=== PATIENT | female | born 1985 | race Caucasian/White ===

== ENCOUNTER 2016-11-27 18:58 | Emergency (ER) | payer OTHER ==
[~2016-11-27] VITALS: Ht 162.6 cm; Wt 166.0 kg
[2016-11-27 19:08] VITALS: Ht 162.6 cm; Wt 166.0 kg
[2016-11-27] MEDS ORDERED: SOD CHLORIDE 0.9% 1,000 ML IV STA (21:39)
[2016-11-27] MEDS ORDERED: METOCLOPRAMIDE 10 MG INJ IV ONE (22:00)
[2016-11-27 22:33] LABS: ADD UMIC YES; URINE BILIRUBIN (Dip) NEGATIVE (NEGATIVE); URINE BLOOD (Dip) NEGATIVE (NEGATIVE); URINE GLUCOSE (Dip) NEGATIVE (NEGATIVE); URINE KETONES (Dip) NEGATIVE (NEGATIVE); URINE LEUKOCYTE ESTERASE (Dip) 1+ (NEGATIVE); URINE NITRITE (Dip) NEGATIVE (NEGATIVE); URINE TOTAL PROTEIN (Dip) NEGATIVE (NEGATIVE); URINE UROBILINOGEN (Dip) 0.2 E.U./dL (0.1-1.0)
[2016-11-27] MEDS ORDERED: HYDROmorphONE 1 MG/ML SYG IV STA (22:42)
[2016-11-27 22:43] LABS: BACTERIA,URINE MODERATE; SQUAMOUS EPITHELIAL CELL,UR MANY; URINE COLOR YELLOW (YELLOW); URINE RBCS NONE SEEN /HPF (0)
[2016-11-27 22:55] LABS: ALBUMIN 4.1 g/dl (3.3-4.9)
[2016-11-27 22:56] LABS: POTASSIUM 4.2 mmol/L (3.5-5.1)
[2016-11-27 22:57] LABS: BASOPHILS % 0.3 % (0.0-2.0); EOSINOPHILS # 0.2 10^3/ul (0.0-0.5); EOSINOPHILS % 1.8 % (0.0-7.0); HEMATOCRIT 35.6 % (37.0-47.0); LYMPHOCYTES # 2.8 10^3/ul (0.8-2.9); LYMPHOCYTES % 29.4 % (15.0-51.0); MEAN CORPUSCULAR HEMOGLOBIN 31.3 pg (29.0-33.0); MEAN CORPUSCULAR HGB CONC 33.8 g/dl (32.0-37.0); MEAN CORPUSCULAR VOLUME 92.5 fl (82.0-101.0); MEAN PLATELET VOLUME 8.1 fl (7.4-10.4); MONOCYTE # 0.9 10^3/ul (0.3-0.9); MONOCYTES % 9.3 % (0.0-11.0); NEUTROPHIL # 5.7 10^3/ul (1.6-7.5); NEUTROPHILS % 59.2 % (39.0-77.0); PLATELET COUNT 287 10^3/UL (140-440); RED BLOOD COUNT 3.84 10^6/ul (4.20-5.40); RED CELL DISTRIBUTION WIDTH 14.8 % (11.5-14.5); UNCORRECTED WBC 9.6 10^3/ul (4.8-10.8); WHITE BLOOD COUNT 9.6 10^3/ul (4.8-10.8)
[2016-11-27 22:58] LABS: ALBUMIN/GLOBULIN RATIO 1.05; BILIRUBIN,INDIRECT 0.3 mg/dl (0-1.1); BILIRUBIN,TOTAL 0.3 mg/dl (0.2-1.3); CREATININE 0.63 mg/dl (0.44-1.00)
[2016-11-27 23:01] LABS: CONDITION 1; LH ANALYZER COMMENTS 1
--- NOTE | 2016-11-28 00:01 | RADRPT ---
PROCEDURE: CT Brain without contrast. CLINICAL INDICATION: headache, dizziness TECHNIQUE: A multiplanar CT of the brain was performed on a CT scanner utilizing axial imaging fro m the skull base through the vertex without IV contrast. The CTDIvol is 44.8 mGy and the DLP is 720 .23 mGycm. One or more of the following dose reduction techniques were utilized: Automated exposur e control, adjustment of the mA and/or kV according to patient size, use of iterative reconstruction technique. COMPARISON: None. FINDINGS: No evidence of intracranial hemorrhage or abnormal extra-axial fluid collection. The brain parenchyma is normal attenuation morphology with preservation of jimenez white differentiatio n and age appropriate size of the ventricles and subarachnoid spaces. The posterior fossa contents, brainstem, craniocervical junction, orbits, pituitary axis, paranasal sinuses, mastoid air cells, and calvarium are unremarkable. IMPRESSION: 1. No intracranial hemorrhage or acute intracranial. RPTAT:AAJJ Physician Merle Date Time Electronically viewed and signed by Physician Merle on 11/28/2016 00:01 WINIFRED/
[2016-11-28] MEDS ORDERED: HYDROmorphONE 1 MG/ML SYG IV STA (00:32)
[2016-11-28] MEDS ORDERED: FIORICET PO (00:43)
--- NOTE | 2016-11-28 00:49 | ERD ---
ER Documentation Chief Complaint Date/Time DATE: 11/28/16 TIME: 00:46 Chief Complaint Headache, dizziness HPI 31-year-old female with a past medical history of status post gastric sleeve surgery presents to the ED complaining of headache that started earlier today. Reports that she has a past medical history of migraines however this headache feels different. Reports that she started to feel nauseous, lightheaded a couple of days ago. States that she felt like she wanted to faint earlier today. Describes the pain as a nail drilling into her skull. Reports that the pain is constant and rates it a 10 out of 10. States that she is nauseous but denies any vomiting. Denies any abdominal pain, chest pain, shortness of breath , weakness, numbness or tingling. ROS All systems reviewed and are negative except as per history of present illness. Medications Home Meds Active Scripts Acetamin/Butalbital/Caffeine* (Fioricet*) [id number] Tab, 1 TAB PO Q6H Y for PAIN, #30 TAB Prov:HECTOR RUSSO PA-C 11/28/16 Allergies Allergies: Coded Allergies: cefazolin (Verified Allergy, Unknown, 11/27/16) erythromycin base (Verified Allergy, Unknown, 11/27/16) PMhx/Soc History of Surgery: Yes (gastric sleeve, gall bladder, ) Anesthesia Reaction: No Hx Neurological Disorder: No Hx Respiratory Disorders: No Hx Cardiac Disorders: No Hx Psychiatric Problems: No Hx Miscellaneous Medical Probl: Yes (migraines) Hx Alcohol Use: No Hx Substance Use: No Hx Tobacco Use: No Smoking Status: Never smoker Physical Exam Vitals Vital Signs Date Time Temp Pulse Resp B/P Pulse Ox O2 Delivery O2 Flow Rate FiO2 11/27/16 19:08 97.1 115 20 137/88 99 Physical Exam Const: Ufz-dlj-ithyparne, well-nourished. In no acute distress. Head: Atraumatic, normocephalic Eyes: Normal Conjunctiva without injection. No purulent discharge. PERRLA. EOMI ENT: Normal external ear. Ear canal without erythema. Tympanic membrane pearly jimenez without effusion or bulging. Nasal canal clear with normal turbinates. Moist oropharynx without tonsillar exudates. Non-erythematous pharynx. Uvula midline. No drooling. No trismus. Neck: No cervical midline tenderness. Full range of motion. No meningismus. No cervical lymphadenopathy. No JVD. Resp: Clear to auscultation bilaterally. No wheezing, rhonchi, rales, or crackles. No accessory muscle use. No retractions. Cardio: Regular rate and rhythm. No murmurs, rubs or gallops. Abd: Soft, non tender, non distended. Normal bowel sounds. No palpable masses. No rebound tenderness. No guarding. Negative McBurney's Point. Negative Albert's Sign. Skin: Normal skin turgor. No petechiae or rashes Back: No midline tenderness. No CVA tenderness. Ext: No cyanosis, or edema. Distal pulses intact bilaterally. Neur: Awake and alert. Normal gait. Normal coordination. Cranial Nerves II- VII intact. Normal finger to nose. Muscle strength 5/5. Sensation intact. Psych: Normal Mood and Affect Result Diagram: 11/27/16221411/27/162214 Results 24 hrs Laboratory Tests Test 11/27/16 22:10 11/27/16 22:15 Urine Bacteria MODERATE Urine Bilirubin NEGATIVE Urine Clarity CLOUDY Urine Color YELLOW Urine Glucose NEGATIVE% Urine Hemoglobin NEGATIVE Urine Ketones NEGATIVE Urine Leukocyte Esterase 1+ Urine Microscopic RBC NONE SEEN/HPF Urine Microscopic WBC 5-10/HPF Urine Nitrite NEGATIVE Urine Specific [place] >=1.030 Urine Squamous Epithelial Cells MANY Urine Total Protein NEGATIVE Urine Urobilinogen 0.2 E.U./dL Urine pH 5.5 Alanine Aminotransferase (ALT/SGPT) 18IU/L Albumin 4.1g/dl Albumin/Globulin Ratio 1.05 Alkaline Phosphatase 72IU/L Anion Gap 19 Aspartate Amino Transf (AST/SGOT) 23IU/L Basophils # 0.010^3/ul Basophils % 0.3% Blood Morphology Comment Blood Urea Nitrogen 12mg/dl Calcium Level 9.0mg/dl Carbon Dioxide Level 24mmol/L Chloride Level 105mmol/L Creatinine 0.63mg/dl Direct Bilirubin 0.00mg/dl Eosinophils # 0.210^3/ul Eosinophils % 1.8% Globulin 3.90g/dl Glucose Level 82mg/dl Hematocrit 35.6% Hemoglobin 12.0g/dl Indirect Bilirubin 0.3mg/dl Lipase 55U/L Lymphocytes # 2.810^3/ul Lymphocytes % 29.4% Mean Corpuscular Hemoglobin 31.3pg Mean Corpuscular Hemoglobin Concent 33.8g/dl Mean Corpuscular Volume 92.5fl Mean Platelet Volume 8.1fl Monocytes # 0.910^3/ul Monocytes % 9.3% Neutrophils # 5.710^3/ul Neutrophils % 59.2% Nucleated Red Blood Cells # 0.010^3/ul Nucleated Red Blood Cells % 0.0/100WBC Platelet Count 77796^3/UL Potassium Level 4.2mmol/L Red Blood Count 3.8410^6/ul Red Cell Distribution Width 14.8% Serum HCG, Qualitative NEGATIVE Sodium Level 144mmol/L Total Bilirubin 0.3mg/dl Total Protein 8.0g/dl White Blood Count 9.610^3/ul Current Medications Medications (Trade) Dose Ordered Sig/Lesley Route PRN Reason Start Time Stop Time Status Last Admin Dose Admin Sodium Chloride (NS) 1,000 ml @ 1,000 mls/hr Q1H STAT IV 11/27/16 21:39 11/27/16 22:38 DC 11/27/16 22:16 Metoclopramide HCl (Reglan) 10 mg ONCE ONCE IV 11/27/16 22:00 11/27/16 22:01 DC 11/27/16 22:16 Hydromorphone HCl (Dilaudid) 1 mg ONCE STAT IV 11/27/16 22:42 11/27/16 22:45 DC 11/27/16 22:53 Hydromorphone HCl (Dilaudid) 1 mg ONCE STAT IV 11/28/16 00:32 11/28/16 00:34 DC 11/28/16 00:48 Procedures/MDM This is a 31-year-old female with no significant past medical history presents the ED complaining of dizziness, lightheadedness and headache. Patient is afebrile and nontoxic-appearing. A CT of the brain without contrast was discussed with patient at this time. Patient stated that she would like to obtain a CT without contrast because this headache is very severe and is different from her previous migraines. A CBC, CMP, lipase, UA, urine , serum hCG was ordered to further evaluate patient. Patient was treated with 1 L of normal saline, Reglan, Dilaudid with improvement of her pain. EKG reviewed and interpreted by Dr. Gomez Rate/Rhythm: [89 bpm, Normal Sinus Rhythm] No ectopy, no ST elevations, normal axis. QRS, ST, T-waves: [No changes consistent w/ acute ischemia] Impression: [No evidence of ischemia or arrhythmia] Low suspicion for acute myocardial infarction, pneumothorax, pneumonia, cardiac tamponade, pulmonary embolism, AAA, aortic dissection, Boerhaave's syndrome, cardiac dysrhythmias,meningitis, intracranial bleed, seizure, stroke, TIA or other emergent conditions. PROCEDURE: CT Brain without contrast. CLINICAL INDICATION: headache, dizziness TECHNIQUE: A multiplanar CT of the brain was performed on a CT scanner utilizing axial imaging from the skull base through the vertex without IV contrast. The CTDIvol is 44.8 mGy and the DLP is 720.23 mGycm. One or more of the following dose reduction techniques were utilized: Automated exposure control, adjustment of the mA and/or kV according to patient size, use of iterative reconstruction technique. COMPARISON: None. FINDINGS: No evidence of intracranial hemorrhage or abnormal extra-axial fluid collection. The brain parenchyma is normal attenuation morphology with preservation of jimenez white differentiation and age appropriate size of the ventricles and subarachnoid spaces. The posterior fossa contents, brainstem, craniocervical junction, orbits, pituitary axis, paranasal sinuses, mastoid air cells, and calvarium are unremarkable. IMPRESSION: 1. No intracranial hemorrhage or acute intracranial. There is low suspicion for intracranial bleed, subarachnoid hemorrhage, epidural hematoma, subdural hematoma, meningitis, TIA, stroke, ectopic , hypoglycemia, or other emergent conditions. Discharge medications: Fioricet Follow up with primary care physician in 1-2 days. Instructed patient to return to the ED sooner for any worsening symptoms. Patient's questions were answered. Patient understood and agreed with discharge plan. Patient discharged stable. Departure Diagnosis: Primary Impression: Headache Headache type: unspecified Headache chronicity pattern: unspecified pattern Intractability: not intractable Qualified Code: R51 - Nonintractable headache, unspecified chronicity pattern, unspecified headache type Additional Impression: Dizziness Condition: Stable Patient Instructions: Possible Causes of Dizziness or Fainting, Headache, Unspecified Referrals: COMM[facility] YOU HAVE RECEIVED A MEDICAL SCREENING EXAM AND THE RESULTS INDICATE THAT YOU DO NOT HAVE A CONDITION THAT REQUIRES URGENT TREATMENT IN THE EMERGENCY DEPARTMENT. FURTHER EVALUATION AND TREATMENT OF YOUR CONDITION CAN WAIT UNTIL YOU ARE SEEN IN YOUR DOCTORS OFFICE WITHIN THE NEXT 1-2 DAYS. IT IS YOUR RESPONSIBILITY TO MAKE AN APPOINTMENT FOR FOLOW-UP CARE. IF YOU HAVE A PRIMARY DOCTOR --you should call your primary doctor and schedule an appointment IF YOU DO NOT HAVE A PRIMARY DOCTOR YOU CAN CALL OUR PHYSICIAN REFERRAL HOTLINE AT IF YOU CAN NOT AFFORD TO SEE A PHYSICIAN YOU CAN CHOSE FROM THE FOLLOWING [facility] [address] [facility] [address] [facility] [address] [facility] [address] [facility] [address] [facility]. [facility] [address] [facility]. [facility] YOU HAVE RECEIVED A MEDICAL SCREENING EXAM AND THE RESULTS INDICATE THAT YOU DO NOT HAVE A CONDITION THAT REQUIRES URGENT TREATMENT IN THE EMERGENCY DEPARTMENT. FURTHER EVALUATION AND TREATMENT OF YOUR CONDITION CAN WAIT UNTIL YOU ARE SEEN IN YOUR DOCTORS OFFICE WITHIN THE NEXT 1-2 DAYS. IT IS YOUR RESPONSIBILITY TO MAKE AN APPOINTMENT FOR FOLOW-UP CARE. IF YOU HAVE A PRIMARY DOCTOR --you should call your primary doctor and schedule and appointment IF YOU DO NOT HAVE A PRIMARY DOCTOR YOU CAN CALL OUR PHYSICIAN REFERRAL HOTLINE AT . IF YOU CAN NOT AFFORD TO SEE A PHYSICIAN YOU CAN CHOSE FROM THE FOLLOWING [facility] INSTITUTIONS: [facility] [address] [place] [address] [facility] [address] [place] [address] [facility] [address] [place] [address] [facility] URGENT [facility]/SPECIALTIES Additional Instructions: FOLLOW UP WITH YOUR PRIMARY CARE PHYSICIAN TOMORROW.Return to this facility if you are not improving as expected. HECTOR RUSSO PA-C Nov 28, 2016 00:49
== END 2016-11-28 01:08 | disposition home or self-care (01) ==
LOC: FTE 18:58
DX: R51 Headache (principal); R42 Dizziness and giddiness
CPT/HCPCS: 36415; 70450; 80053; 81001; 83690; 84703; 85025; 93005; 96374; 96375; 96376; 99285; J1170; J2765; J7030; 81003

== ENCOUNTER 2017-02-17 18:09 | Emergency (ER) | payer OTHER ==
[~2017-02-17] VITALS: Ht 165.1 cm; Wt 110.0 kg
[~2017-02-17 18:09] MED LIST: FIORICET PO
[2017-02-17 18:11] VITALS: Ht 165.1 cm; Wt 110.0 kg
[2017-02-17] MEDS ORDERED: HYDROmorphONE 1 MG/ML SYG IV STA ×3 (18:39→22:38)
[2017-02-17] MEDS ORDERED: SOD CHLORIDE 0.9% 500 ML IV STA (18:39)
[2017-02-17] MEDS ORDERED: ONDANSETRON 4 MG INJ IV STA (18:39)
--- NOTE | 2017-02-17 18:44 | ERD ---
ER Documentation Chief Complaint Date/Time DATE: 02/17/17 TIME: 18:40 Chief Complaint LEFT SIDED AP HPI 31-year-old female history of morbid obesity, status post gastric sleeve 4 years ago who presents with left-sided abdominal pain and back pain. She describes sudden onset of pain that is moderate to severe that occurred approximately 1-2 hours prior to arrival. She describes constant pain, no colicky pain. No nausea or vomiting no chest pain or shortness of breath, no pleuritic pain. She denies any reproducible symptoms. No dysuria urgency or frequency. ROS All systems reviewed and are negative except as per history of present illness. Medications Home Meds Active Scripts Ondansetron (Ondansetron Odt) 4 Mg Tab.rapdis, 4 MG PO Q6H Y for NAUSEA AND/OR VOMITING, #10 TAB Prov:DM CAIN MD 02/17/17 Ibuprofen* (Motrin*) 800 Mg Tab, 800 MG PO Q6H Y for PAIN AND OR ELEVATED TEMP, #30 TAB Prov:DM CAIN MD 02/17/17 Hydrocodone/Acetaminophen (Faywood 10-325 Tablet) 1 Each Tablet, 1 TAB PO Q6H Y for PAIN, #12 TAB Prov:DM CAIN MD 02/17/17 Tamsulosin Hcl* (Flomax*) 0.4 Mg Cap.er.24h, 0.4 MG PO QPM, #5 CAP Prov:DM CAIN MD 02/17/17 Discontinued Scripts Acetamin/Butalbital/Caffeine* (Fioricet*) [id number] Tab, 1 TAB PO Q6H Y for PAIN, #30 TAB Prov:HECTOR RUSSO PA-C 11/28/16 Allergies Allergies: Coded Allergies: cefazolin (Verified Allergy, Unknown, 02/17/17) erythromycin base (Verified Allergy, Unknown, 02/17/17) PMhx/Soc History of Surgery: Yes (gastric sleeve, gall bladder, ) Anesthesia Reaction: No Hx Neurological Disorder: No Hx Respiratory Disorders: No Hx Cardiac Disorders: No Hx Psychiatric Problems: No Hx Miscellaneous Medical Probl: Yes (migraines) Hx Alcohol Use: No Hx Substance Use: No Hx Tobacco Use: No Smoking Status: Never smoker FmHx Family History: No diabetes Physical Exam Vitals Vital Signs Date Time Temp Pulse Resp B/P Pulse Ox O2 Delivery O2 Flow Rate FiO2 02/17/17 18:34 81 17 148/82 100 Room Air 02/17/17 18:11 98.2 75 18 120/75 99 Physical Exam General: Well developed, well nourished, no acute distress Head: Normocephalic, atraumatic. Eyes: Pupils equally reactive, EOM intact ENT: Moist mucous membranes Neck: Supple, no lymphadenopathy Respiratory: Lungs clear bilaterally, no distress Cardiovascular: RRR, no murmurs, rubs, or gallops Abdominal: Soft, inconsistent tenderness to left side of the abdomen both upper and lower quadrants without rebound or guarding : Deferred MSK: No edema, no unilateral swelling, 5/5 strength Neurologic: Alert and oriented, moving all extremities, normal speech, no focal weakness, no cerebellar signs Skin: No rash Psych: Normal mood Result Diagram: 02/17/17 1830 02/17/17 1830 Results 24 hrs Laboratory Tests Test 02/17/17 18:30 02/17/17 19:40 White Blood Count 9.010^3/ul Red Blood Count 3.7310^6/ul Hemoglobin 12.2g/dl Hematocrit 36.8% Mean Corpuscular Volume 98.7fl Mean Corpuscular Hemoglobin 32.7pg Mean Corpuscular Hemoglobin Concent 33.2g/dl Red Cell Distribution Width 11.6% Platelet Count 69262^3/UL Mean Platelet Volume 10.4fl Neutrophils % 55.6% Lymphocytes % 34.0% Monocytes % 8.6% Eosinophils % 1.3% Basophils % 0.2% Nucleated Red Blood Cells % 0.0/100WBC Neutrophils # 5.010^3/ul Lymphocytes # 3.110^3/ul Monocytes # 0.810^3/ul Eosinophils # 0.110^3/ul Basophils # 0.010^3/ul Nucleated Red Blood Cells # 0.010^3/ul Sodium Level 140mmol/L Potassium Level 4.5mmol/L Chloride Level 106mmol/L Carbon Dioxide Level 22mmol/L Anion Gap 17 Blood Urea Nitrogen 13mg/dl Creatinine 0.65mg/dl Glucose Level 85mg/dl Calcium Level 9.3mg/dl Total Bilirubin 0.5mg/dl Direct Bilirubin 0.00mg/dl Indirect Bilirubin 0.5mg/dl Aspartate Amino Transf (AST/SGOT) 32IU/L Alanine Aminotransferase (ALT/SGPT) 17IU/L Alkaline Phosphatase 80IU/L Total Protein 8.3g/dl Albumin 4.2g/dl Globulin 4.10g/dl Albumin/Globulin Ratio 1.02 Lipase 51U/L Serum HCG, Qualitative NEGATIVE Urine Color YELLOW Urine Clarity SLIGHTLY CLOUDY Urine pH 5.5 Urine Specific [place] 1.025 Urine Ketones NEGATIVE Urine Nitrite NEGATIVE Urine Bilirubin NEGATIVE Urine Urobilinogen 1.0 E.U./dL Urine Leukocyte Esterase 2+ Urine Microscopic RBC >50/HPF Urine Microscopic WBC 2-5/HPF Urine Squamous Epithelial Cells FEW Urine Hemoglobin 3+ Urine Glucose NEGATIVE% Urine Total Protein TRACE Current Medications Medications (Trade) Dose Ordered Sig/Lesley Route PRN Reason Start Time Stop Time Status Last Admin Dose Admin Sodium Chloride (NS) 500 ml @ 500 mls/hr Q1H STAT IV 02/17/17 18:39 02/17/17 19:38 DC 02/17/17 18:57 Hydromorphone HCl (Dilaudid) 1 mg ONCE STAT IV 02/17/17 18:39 02/17/17 18:40 DC 02/17/17 18:56 Ondansetron HCl (Zofran Inj) 4 mg ONCE STAT IV 02/17/17 18:39 02/17/17 18:40 DC 02/17/17 18:56 Hydromorphone HCl (Dilaudid) 1 mg ONCE STAT IV 02/17/17 20:23 02/17/17 20:24 DC 02/17/17 20:28 Ketorolac Tromethamine (Toradol) 15 mg ONCE STAT IV 02/17/17 20:27 02/17/17 20:30 DC Procedures/MDM EKG, MONITORS, & DIAGNOSTIC IMAGING: CT abdomen and pelvis: Pending LAB INTERPRETATION: Microscopic hematuria, no evidence of renal insufficiency MEDICAL DECISION MAKING: The patient presents the emergency room with sudden onset left flank pain. Broad differential but this is most consistent with possible renal colic. Consider possible musculoskeletal etiology. No evidence of rash to suggest shingles. The patient has a difficult exam given her body habitus. This is prompting CT imaging of the abdomen and pelvis. No evidence of perforation or cardiopulmonary process. ER COURSE: The patient's laboratory testing are likely consistent with renal colic. CT imaging is pending. Patient has been given 2 rounds of Dilaudid and Toradol with improved symptomatology. The patient CT imaging is pending at the time of signout. Patient endorsed oncoming provider. If negative the patient can be safely discharged with close urology follow-up. No indication for antibiotics currently. I kept the patient and/or family informed of laboratory and diagnostic imaging results throughout the emergency room course. DISPOSITION PLAN: Pending CT imaging but anticipate discharge home We discussed follow up with the patient's primary care doctor within 24 to 48 hours as needed. We also discussed return to the emergency room for worsening symptoms or worsening condition. Outpatient referral: Urology Discharge Medications: Motrin, Faywood, Zofran, Flomax We discussed the use of narcotics including avoidance of operating heavy machinery and driving as well as its addictive properties. Departure Diagnosis: Primary Impression: Left flank pain Additional Impressions: Microscopic hematuria Renal colic on left side Condition: Stable DM CAIN MD Feb 17, 2017 18:44
[2017-02-17 19:03] LABS: ADD SCAN DIFF NO
[2017-02-17 19:05] LABS: BASOPHILS % 0.2 % (0.0-2.0); EOSINOPHILS # 0.1 10^3/ul (0.0-0.5); EOSINOPHILS % 1.3 % (0.0-7.0); HEMATOCRIT 36.8 % (37.0-47.0); HEMOGLOBIN 12.2 g/dl (12.0-16.0); LYMPHOCYTES # 3.1 10^3/ul (0.8-2.9); MEAN CORPUSCULAR HEMOGLOBIN 32.7 pg (29.0-33.0); MEAN CORPUSCULAR HGB CONC 33.2 g/dl (32.0-37.0); MEAN CORPUSCULAR VOLUME 98.7 fl (82.0-101.0); MEAN PLATELET VOLUME 10.4 fl (7.4-10.4); MONOCYTE # 0.8 10^3/ul (0.3-0.9); MONOCYTES % 8.6 % (0.0-11.0); NEUTROPHILS % 55.6 % (39.0-77.0); PLATELET COUNT 307 10^3/UL (140-415); RED BLOOD COUNT 3.73 10^6/ul (4.20-5.40); RED CELL DISTRIBUTION WIDTH 11.6 % (11.5-14.5)
[2017-02-17 19:19] LABS: ALBUMIN 4.2 g/dl (3.3-4.9)
[2017-02-17 19:20] LABS: POTASSIUM 4.5 mmol/L (3.5-5.1)
[2017-02-17 19:22] LABS: ALBUMIN/GLOBULIN RATIO 1.02; BILIRUBIN,INDIRECT 0.5 mg/dl (0-1.1); BILIRUBIN,TOTAL 0.5 mg/dl (0.2-1.3); CREATININE 0.65 mg/dl (0.44-1.00); TOTAL PROTEIN 8.3 g/dl (6.1-8.1)
[2017-02-17 19:23] LABS: CALCIUM 9.3 mg/dl (8.4-10.2)
[2017-02-17 20:09] LABS: ADD UMIC YES; URINE COLOR YELLOW (YELLOW)
[2017-02-17 20:11] LABS: URINE BILIRUBIN (Dip) NEGATIVE (NEGATIVE); URINE BLOOD (Dip) 3+ (NEGATIVE); URINE GLUCOSE (Dip) NEGATIVE (NEGATIVE); URINE KETONES (Dip) NEGATIVE (NEGATIVE); URINE NITRITE (Dip) NEGATIVE (NEGATIVE); URINE TOTAL PROTEIN (Dip) TRACE (NEGATIVE); URINE UROBILINOGEN (Dip) 1.0 E.U./dL (0.1-1.0)
[2017-02-17 20:12] LABS: URINE LEUKOCYTE ESTERASE (Dip) 2+ (NEGATIVE)
[2017-02-17 20:20] LABS: SQUAMOUS EPITHELIAL CELL,UR FEW; URINE RBCS >50 /HPF (0)
[2017-02-17] MEDS ORDERED: HYDR-902 PO (20:24)
[2017-02-17] MEDS ORDERED: TAMS-14 PO (20:24)
[2017-02-17] MEDS ORDERED: IBUP800T25 PO (20:24)
[2017-02-17] MEDS ORDERED: ONDA4TAB14 PO (20:24)
[2017-02-17] MEDS ORDERED: KETOROLAC 15 MG INJ IV STA (20:27)
--- NOTE | 2017-02-17 22:06 | RADRPT ---
PROCEDURE: CT Abdomen and pelvis without contrast. CLINICAL INDICATION: Abdominal pain. TECHNIQUE: CT scan of the abdomen without contrast was performed on a multi-slice CT scanner. Cor onal and sagittal reformatted images were obtained from the axial source images. 1 or more of the f ollowing dose reduction techniques were utilized: Automated exposure control, adjustment of the mA and/or kV according to patient's size, iterative reconstruction technique. The images were reviewed on a high-resolution PACS workstation. RADIATION DOSE: CTDIvol: 44.8 mGyDLP: 720.2 mGy-cm COMPARISON: None. FINDINGS: The images slightly limited due to attenuation of the vein from soft tissue. Limited visualization of the inferior thorax is unremarkable. The liver is normal in size and density without focal mass or intrahepatic biliary dilatation. There are postoperative change from prior cholecystectomy. The extrahepatic common bile duct is within normal limits. There are postoperative changes from prior g astric surgery. The spleen, adrenal glands and pancreas are normal in appearance. The kidneys are normal in appearance. There is no evidence of nephrolithiasis or hydronephrosis. There is no periao rtic, iliac or inguinal lymphadenopathy. The aorta is normal in appearance. The colon is normal in appearance without evidence of asymmetric wall thickening, mass or dilatation . The small bowel is unremarkable. There is no mesenteric lymphadenopathy. The appendix is not de finitely visualized. No enlarged, inflamed loops of small bowel are seen in the right lower quadran t.. The uterus and adnexal structures are unremarkable. The bladder is normal in appearance. The lower thoracic and lumbar spines are unremarkable. No osteolytic or osteoblastic lesion is detected . The soft tissues are normal in appearance. IMPRESSION: 1. No acute intra-abdominal abnormality. 2. No mass, lymphadenopathy, or focal acute inflammatory process is identified. 3. Postoperative changes from prior gastric surgery and cholecystectomy. RPTAT: HGAS .Lonnie Cortes MD, MD Date Time Electronically viewed and signed by .Lonnie Cortes MD, MD on 02/17/2017 22:06 .S/
[2017-02-17 23:00] VITALS: BP 104/60; PULSE 75; RESP 21
== END 2017-02-18 00:21 | disposition home or self-care (01) ==
LOC: E/R 18:09
DX: R10.12 Left upper quadrant pain (principal); R10.32 Left lower quadrant pain; R31.21 Asymptomatic microscopic hematuria; R10.2 Pelvic and perineal pain
CPT/HCPCS: 74176; 80053; 81001; 83690; 84703; 85025; J1170; J1885; J2405; J7040; 36415; 81003; 96374; 96375; 96376

== ENCOUNTER 2017-05-04 17:14 | Emergency (ER) | payer OTHER ==
[~2017-05-04] VITALS: Wt 158.2 kg
[~2017-05-04 17:14] MED LIST changes: -FIORICET PO; +HYDR-902 PO; +IBUP800T25 PO; +ONDA4TAB14 PO; +TAMS-14 PO
[2017-05-04] MEDS ORDERED: SOD CHLORIDE 0.9% 1,000 ML IV ONE ×2 (18:00→21:30)
[2017-05-04 18:04] LABS: ADD SCAN DIFF NO
[2017-05-04 18:30] LABS: ACETAMINOPHEN < 10.0 ug/ml (10.0-30.0); ALANINE AMINOTRANSFERASE 27 IU/L (13-69); ALBUMIN 4.6 g/dl (3.3-4.9); ALBUMIN/GLOBULIN RATIO 1.43; ALKALINE PHOSPHATASE 65 IU/L (42-121); ANION GAP 14 (8-16); ASPARTATE AMINO TRANSFERASE 20 IU/L (15-46); BILIRUBIN,INDIRECT 0.4 mg/dl (0-1.1); BILIRUBIN,TOTAL 0.4 mg/dl (0.2-1.3); BLOOD UREA NITROGEN 8 mg/dl (7-20); CALCIUM 9.3 mg/dl (8.4-10.2); CARBON DIOXIDE 26 mmol/L (21-31); CHLORIDE 105 mmol/L (97-110); CREATININE 0.78 mg/dl (0.44-1.00); GLUCOSE 98 mg/dl (70-220); POTASSIUM 4.4 mmol/L (3.5-5.1); SALICYLATE < 1.0 mg/dl (5.0-30.0); SODIUM 141 mmol/L (135-144); TOTAL PROTEIN 7.8 g/dl (6.1-8.1)
[2017-05-04 18:40] LABS: BASOPHILS % 0.1 % (0.0-2.0); EOSINOPHILS # 0.1 10^3/ul (0.0-0.5); EOSINOPHILS % 1.3 % (0.0-7.0); HEMATOCRIT 36.2 % (37.0-47.0); HEMOGLOBIN 11.6 g/dl (12.0-16.0); LYMPHOCYTES # 2.2 10^3/ul (0.8-2.9); LYMPHOCYTES % 23.4 % (15.0-51.0); MEAN CORPUSCULAR HEMOGLOBIN 32.3 pg (29.0-33.0); MEAN CORPUSCULAR VOLUME 100.8 fl (82.0-101.0); MONOCYTE # 0.7 10^3/ul (0.3-0.9); MONOCYTES % 7.7 % (0.0-11.0); NEUTROPHIL # 6.4 10^3/ul (1.6-7.5); NEUTROPHILS % 67.3 % (39.0-77.0); PLATELET COUNT 290 10^3/UL (140-415); RED BLOOD COUNT 3.59 10^6/ul (4.20-5.40); WHITE BLOOD COUNT 9.5 10^3/ul (4.8-10.8)
[2017-05-04] MEDS ORDERED: morphine 4 MG/ML VIAL IV STA (19:07)
[2017-05-04] MEDS ORDERED: ONDANSETRON 4 MG INJ IV STA (19:07)
--- NOTE | 2017-05-04 19:43 | RADRPT ---
PROCEDURE: CT KUB. CLINICAL INDICATION: Left flank pain TECHNIQUE: CT KUB (Renal Stone Survey) without contrast was performed on a GE volumetric [address] scanner. No IV contrast was administered. 3-D coronal reformatted images were obtained from the axial source images. CTDI: 23.8 and mGy DLP: 1623 mGy-cm COMPARISON: February 17, 2017 FINDINGS: Limited evaluation of the lung bases are clear. The liver is enlarged. No gross liver lesion is seen although evaluation is limited without intrave nous contrast. The spleen, bilateral adrenal glands, pancreas, and bilateral kidneys are normal-esvin earing. No renal calculi. No hydronephrosis. Status post cholecystectomy. Surgical changes of gastric bypass without gastric outlet obstruction. The small and large bowel are thin-walled and nondilated without evidence for obstruction. Bilatera l cystic adnexal structures are incompletely evaluated though they may represent ovarian follicles. Evaluation of the pelvis is limited due to artifact related to the patient's large size. The appendix is normal. IMPRESSION: No acute intra-abdominal process. Normal appendix. No nephrolithiasis. Stable surgical changes of gastric bypass and cholecystectomy. Physician Sharon Date Time Electronically viewed and signed by Physician Sharon on 05/04/2017 19:43 ML/
[2017-05-04] MEDS ORDERED: HYDROmorphONE 1 MG/ML SYG IV STA ×2 (20:09→20:30)
--- NOTE | 2017-05-04 23:25 | ERD ---
ER Documentation Chief Complaint Date/Time DATE: 05/04/17 TIME: 23:20 Chief Complaint l. flank pain HPI 32-year-old female history of obesity, gastric sleeve comes emergency department with chronic left-sided flank pain that has worsened over the last week. Patient states that it has been approximately a week, is in the left flank, sharp, intermittent. She denies nausea, vomiting, diarrhea. No chest pain or shortness of breath she has had this pain previously in the past, and denies any history of kidney stones. Patient reports that she is a [facility] patient. ROS All systems reviewed and are negative except as per history of present illness. Medications Home Meds Active Scripts Tamsulosin Hcl* (Flomax*) 0.4 Mg Cap.er.24h, 0.4 MG PO BID, #30 CAP Prov:ANTONIO HALE PA-C 05/05/17 Hydrocodone/Acetaminophen ([place] 10-325 Tablet) 1 Each Tablet, 1 TAB PO Q6H Y for PAIN, #10 TAB Prov:ANTONIO HALE PA-C 05/05/17 Ondansetron (Ondansetron Odt) 4 Mg Tab.rapdis, 4 MG PO Q6H Y for NAUSEA AND/OR VOMITING, #10 TAB Prov:DM CAIN MD 02/17/17 Ibuprofen* (Motrin*) 800 Mg Tab, 800 MG PO Q6H Y for PAIN AND OR ELEVATED TEMP, #30 TAB Prov:DM CAIN MD 02/17/17 Hydrocodone/Acetaminophen ([place] 10-325 Tablet) 1 Each Tablet, 1 TAB PO Q6H Y for PAIN, #12 TAB Prov:DM CAIN MD 02/17/17 Tamsulosin Hcl* (Flomax*) 0.4 Mg Cap.er.24h, 0.4 MG PO QPM, #5 CAP Prov:DM CAIN MD 02/17/17 Allergies Allergies: Coded Allergies: cefazolin (Verified Allergy, Unknown, 02/17/17) erythromycin base (Verified Allergy, Unknown, 02/17/17) PMhx/Soc History of Surgery: Yes (gastric sleeve, gall bladder, ) Anesthesia Reaction: No Hx Neurological Disorder: No Hx Respiratory Disorders: No Hx Cardiac Disorders: No Hx Psychiatric Problems: No Hx Miscellaneous Medical Probl: Yes (migraines) Hx Alcohol Use: No Hx Substance Use: No Hx Tobacco Use: No Smoking Status: Never smoker Physical Exam Vitals Vital Signs Date Time Temp Pulse Resp B/P Pulse Ox O2 Delivery O2 Flow Rate FiO2 05/04/17 17:15 99.0 96 20 110/55 96 Physical Exam General: Well-developed, well-nourished. The patient appears in no acute distress. HEENT: Head is normocephalic, atraumatic. No scleral icterus. Neck: Supple. Nontender. Lungs: Clear to auscultation. Normal air movement. Heart: Regular rate and rhythm. S1 and S2 are normal. No murmurs, gallops, or rubs. Abdomen: Soft, nontender, nondistended. Bowel sounds are normoactive. Questionable CVA tenderness on left flank Extremities: No clubbing or cyanosis. Normal pulses. Moving extremities x 4. No weakness. Neurologic: Alert and oriented 3. No focal deficits. Skin: Normal turgor. No rash or lesions. Result Diagram: 05/04/17175805/04/171758 Results 24 hrs Laboratory Tests Test 05/04/17 17:59 White Blood Count 9.510^3/ul Red Blood Count 3.5910^6/ul Hemoglobin 11.6g/dl Hematocrit 36.2% Mean Corpuscular Volume 100.8fl Mean Corpuscular Hemoglobin 32.3pg Mean Corpuscular Hemoglobin Concent 32.0g/dl Red Cell Distribution Width 13.0% Platelet Count 14887^3/UL Mean Platelet Volume 10.0fl Neutrophils % 67.3% Lymphocytes % 23.4% Monocytes % 7.7% Eosinophils % 1.3% Basophils % 0.1% Nucleated Red Blood Cells % 0.0/100WBC Neutrophils # 6.410^3/ul Lymphocytes # 2.210^3/ul Monocytes # 0.710^3/ul Eosinophils # 0.110^3/ul Basophils # 0.010^3/ul Nucleated Red Blood Cells # 0.010^3/ul Sodium Level 141mmol/L Potassium Level 4.4mmol/L Chloride Level 105mmol/L Carbon Dioxide Level 26mmol/L Anion Gap 14 Blood Urea Nitrogen 8mg/dl Creatinine 0.78mg/dl Glucose Level 98mg/dl Calcium Level 9.3mg/dl Total Bilirubin 0.4mg/dl Direct Bilirubin 0.00mg/dl Indirect Bilirubin 0.4mg/dl Aspartate Amino Transf (AST/SGOT) 20IU/L Alanine Aminotransferase (ALT/SGPT) 27IU/L Alkaline Phosphatase 65IU/L Total Protein 7.8g/dl Albumin 4.6g/dl Globulin 3.20g/dl Albumin/Globulin Ratio 1.43 Lipase 52U/L Salicylates Level < 1.0mg/dl Acetaminophen Level < 10.0ug/ml Current Medications Medications (Trade) Dose Ordered Sig/Lesley Route PRN Reason Start Time Stop Time Status Last Admin Dose Admin Sodium Chloride (NS) 1,000 ml @ 1,000 mls/hr Q1H ONCE IV 05/04/17 18:00 05/04/17 18:59 DC 05/04/17 17:59 Morphine Sulfate (morphine) 4 mg ONCE STAT IV 05/04/17 19:07 05/04/17 19:08 DC 05/04/17 19:21 Ondansetron HCl (Zofran Inj) 4 mg ONCE STAT IV 05/04/17 19:07 05/04/17 19:08 DC 05/04/17 19:21 Hydromorphone HCl (Dilaudid) 1 mg ONCE STAT IV 05/04/17 20:09 05/04/17 20:40 DC Hydromorphone HCl 1 mg 1 mg ONCE STAT IV 05/04/17 20:30 05/04/17 21:06 DC 05/04/17 20:46 Sodium Chloride (NS) 1,000 ml @ 1,000 mls/hr Q1H ONCE IV 05/04/17 21:30 05/04/17 22:29 DC 05/04/17 21:48 Hydromorphone HCl (Dilaudid) 1 mg ONCE STAT IV 05/05/17 00:30 05/05/17 00:31 DC 05/05/17 00:38 Lorazepam (Ativan) 2 mg ONCE ONCE IV 05/05/17 02:30 05/05/17 02:31 DC DIAGNOSTIC IMAGING REPORT Patient: MICHAEL ZAMORA : 1985 Age: 32 Sex: F MR #: [id number] DOS: 05/04/17 7115 Ordering MD: ANTONIO HALE PA-C Location: [facility] Room/Bed: PROCEDURE: CT KUB. CLINICAL INDICATION: Left flank pain TECHNIQUE: CT KUB (Renal Stone Survey) without contrast was performed on a GE volumetric [address] scanner. No IV contrast was administered. 3-D coronal reformatted images were obtained from the axial source images. CTDI: 23.8 and mGy DLP: 1623 mGy-cm COMPARISON: February 17, 2017 FINDINGS: Limited evaluation of the lung bases are clear. The liver is enlarged. No gross liver lesion is seen although evaluation is limited without intravenous contrast. The spleen, bilateral adrenal glands, pancreas, and bilateral kidneys are normal-appearing. No renal calculi. No hydronephrosis. Status post cholecystectomy. Surgical changes of gastric bypass without gastric outlet obstruction. The small and large bowel are thin-walled and nondilated without evidence for obstruction. Bilateral cystic adnexal structures are incompletely evaluated though they may represent ovarian follicles. Evaluation of the pelvis is limited due to artifact related to the patient's large size. The appendix is normal. IMPRESSION: No acute intra-abdominal process. Normal appendix. No nephrolithiasis. Stable surgical changes of gastric bypass and cholecystectomy. Physician Sharon Date Time Electronically viewed and signed by Jose Aparicio Physician on 05/04/2017 19 :43 ML/ CC: ANTONIO HALE PA-C Procedures/MDM ED course: Patient had an IV line established, she is also normal saline 1 L. She was given morphine 4 mg and Zofran 4 mg IV. She states that her pain did not reduce and she was then given Dilaudid 1 mg IV. She did void, urine was dropped off at the laboratory however the laboratory states that the specimen cannot be found. She voided a second time however it was not enough and therefore she was given an additional normal saline bolus 1 L. We will try multiple times asked the patient to void, she states that she tried voiding on her own, turning on the water and she was not successful. The second amount of urine was very small amount and a urine culture will be able to be obtained. She states that she would not like to leave at this time because she feels like she needs to void, I offered her Choi catheter, that can be placed and removed with urology. She states that she does not want a Choi catheter, we have advised her that she likely will need when she is unable to void and at this time patient has been giving a difficult time to the nursing staff. She spent at least an hour in the restroom to try to void. We attempted to do the Choi catheter however she is very resistant, therefore Ativan 2 mg IV was administered. Choi will be reattempted. Disposition is to discharge the patient, pending Choi. MDM: 32-year-old female comes emergency department left-sided flank pain, there is no evidence of kidney stones, no evidence of UTI. Likely musculoskeletal pain, chronic pain. I spoke with the [facility] doctor, advised that he will call her tomorrow to follow-up. I recommended possible urology evaluation as she is not able to void. All workup is negative at this time. They state that she received [place] from the facility on April 12, 2017 and was [place] No. 30. I will give he ra short course of [place] #10, Flomax until she is to follow-up with her primary care doctor. Departure Diagnosis: Primary Impression: Flank pain Condition: Good ANTONIO HALE PA-C May 04, 2017 23:25
[2017-05-05] MEDS ORDERED: HYDROmorphONE 1 MG/ML SYG IV STA (00:30)
[2017-05-05] MEDS ORDERED: HYDR-902 PO (00:56)
[2017-05-05] MEDS ORDERED: TAMS-14 PO (00:59)
[2017-05-05] MEDS ORDERED: LORAZEPAM 2 MG INJ IV ONE (02:30)
[2017-05-05 05:05] VITALS: BP 119/67; PULSE 90; RESP 16; TEMP 97.7
[2017-05-05 06:03] LABS: BARBITURATES Negative (NEGATIVE); BENZODIAZEPINES Negative (NEGATIVE); CANNABINOIDS Negative (NEGATIVE); COCAINE Negative (NEGATIVE); OPIATES Positive (NEGATIVE)
[2017-05-05] MEDS ORDERED: ONDA4TAB14 PO (15:27)
== END 2017-05-05 05:59 | disposition home or self-care (01) ==
LOC: FTE 17:14
DX: R10.9 Unspecified abdominal pain (principal); E66.9 Obesity, unspecified
CPT/HCPCS: 36415; 51701; 74176; 80053; 80306; 80307; 83690; 85025; 87086; 96374; 96375; 96376; 99285; J1170; J2060; J2270; J2405; J7030

== ENCOUNTER 2017-05-05 14:55 | Emergency (ER) | payer OTHER ==
[~2017-05-05] VITALS: Ht 177.8 cm; Wt 156.0 kg
[2017-05-05 14:58] VITALS: Ht 177.8 cm; Wt 156.0 kg
[2017-05-05] MEDS ORDERED: ONDANSETRON (ODT) 4 MG TAB ODT STA (15:07)
[2017-05-05] MEDS ORDERED: ONDA4TAB14 PO (15:27)
[2017-05-05] MEDS ORDERED: HYDROCODONE/APAP (10/325) TAB PO ONE (15:30)
--- NOTE | 2017-05-05 15:56 | ERD ---
ER Documentation Chief Complaint Date/Time DATE: 05/05/17 TIME: 15:52 Chief Complaint FIGUEROA CATH PAIN WAS PLACED LAST NIGHT HPI Patient is a 32-year-old female who presents with a headache and pain at her Figueroa catheter site. The patient was brought in by ambulance. She said that yesterday she was here in the emergency department and had a full workup and then had a Figueroa catheter placed. She said that this morning she had headache and was vomiting and that "I am not supposed to throw up" because she has had bariatric surgery. She has had no treatment as of yet. She has no fevers. She says "[place] does not help me". Upon review of old medical records this is the patient's fourth visit to the ER since November 2016. Review of the emergency department information exchange system shows visits to 3 separate emergency departments. Review of the care system shows 3 [place] prescriptions filled just within the past month by 2 different providers. She says that her primary doctor is at [facility] but she does not have a pain management doctor. ROS All systems reviewed and are negative except as per history of present illness. Medications Home Meds Active Scripts Ondansetron (Ondansetron Odt) 4 Mg Tab.rapdis, 4 MG PO Q6H Y for NAUSEA AND/OR VOMITING, #10 TAB Prov:LINDSAY FONTAINE MD 05/05/17 Tamsulosin Hcl* (Flomax*) 0.4 Mg Cap.er.24h, 0.4 MG PO BID, #30 CAP Prov:ANTONIO HALE PA-C 05/05/17 Hydrocodone/Acetaminophen ([place] 10-325 Tablet) 1 Each Tablet, 1 TAB PO Q6H Y for PAIN, #10 TAB Prov:ANTONIO HALE PA-C 05/05/17 Discontinued Scripts Ondansetron (Ondansetron Odt) 4 Mg Tab.rapdis, 4 MG PO Q6H Y for NAUSEA AND/OR VOMITING, #10 TAB Prov:DM CAIN MD 02/17/17 Ibuprofen* (Motrin*) 800 Mg Tab, 800 MG PO Q6H Y for PAIN AND OR ELEVATED TEMP, #30 TAB Prov:DM CAIN MD 02/17/17 Hydrocodone/Acetaminophen ([place] 10-325 Tablet) 1 Each Tablet, 1 TAB PO Q6H Y for PAIN, #12 TAB Prov:DM CAIN MD 02/17/17 Tamsulosin Hcl* (Flomax*) 0.4 Mg Cap.er.24h, 0.4 MG PO QPM, #5 CAP Prov:DM CAIN MD 02/17/17 Allergies Allergies: Coded Allergies: NSAIDS (Non-Steroidal Anti-Inflamma (Verified Allergy, Severe, 05/05/17) erythromycin base (Verified Allergy, Unknown, 02/17/17) PMhx/Soc History of Surgery: Yes (gastric sleeve, gall bladder, ) Anesthesia Reaction: No Hx Neurological Disorder: No Hx Respiratory Disorders: No Hx Cardiac Disorders: No Hx Psychiatric Problems: No Hx Miscellaneous Medical Probl: Yes (migraines) Hx Alcohol Use: No Hx Substance Use: No Hx Tobacco Use: No Smoking Status: Never smoker FmHx Family History: No diabetes Physical Exam Vitals Vital Signs Date Time Temp Pulse Resp B/P Pulse Ox O2 Delivery O2 Flow Rate FiO2 05/05/17 14:58 98.2 105 20 144/89 94 Physical Exam Const: Moderate distress secondary to pain Head: Atraumatic Eyes: Normal Conjunctiva ENT: Normal External Ears, Nose and Mouth. Neck: Full range of motion..~ No meningismus. Resp: Clear to auscultation bilaterally Cardio: Regular rate and rhythm, no murmurs Abd: Soft, non tender, non distended. Normal bowel sounds Skin: No petechiae or rashes Back: No midline or flank tenderness Ext: No cyanosis, or edema Neur: Awake and alert, cranial nerves II through XII intact, strength is 5 out of 5 in all 4 extremities, no slurred speech Psych: Depressed affect, tearful Results 24 hrs Current Medications Medications (Trade) Dose Ordered Sig/Lesley Route PRN Reason Start Time Stop Time Status Last Admin Dose Admin Acetaminophen/ Hydrocodone Bitart ([place] (10/325)) 1 tab ONCE ONCE PO 05/05/17 15:30 05/05/17 15:31 DC 05/05/17 15:27 Ondansetron HCl (Zofran Odt) 4 mg ONCE STAT ODT 05/05/17 15:07 05/05/17 15:22 DC 05/05/17 15:27 Procedures/MDM Urine test is negative. Patient is a 32-year-old female presents with acute headache and pain at the Figueroa catheter site. Her Figueroa catheter would be a source of infection at this time and I do not think he needs to stay and will be removed. I consider doing a CT scan of the brain but the patient has been here prior for headache and I do not want to give her another CT scan as she just had one in November 2016 which was negative. I believe the risks of CT scan radiation outweigh the benefits. I do not think she needs her workup repeated as she just had a full workup with labs and CT scan of the abdomen and pelvis done yesterday. I do believe that there is an element of pain seeking behavior here given review of the cures database and the emergency department information exchange. I would not give her any narcotic medicines IM or IV. I gave her [place] by mouth and Zofran ODT in the emergency department. She will need to follow-up with her primary doctor at [facility] but I have also given her information for Dr. Manuel a pain management doctor. I doubt meningitis, intracranial mass, intrarenal hemorrhage, or stroke. Departure Diagnosis: Primary Impression: Headache Headache type: unspecified Headache chronicity pattern: acute headache Intractability: not intractable Qualified Code: R51 - Acute nonintractable headache, unspecified headache type Additional Impression: Genitourinary symptoms Condition: Fair Patient Instructions: Self-Care for Headaches, Urinary Retention, Female Referrals: ISMA MANUEL Your doctor at [facility] Additional Instructions: Call your primary care doctor TOMORROW for an appointment during the next 1-2 days.See the doctor sooner or return here if your condition worsens before your appointment time. LINDSAY FONTAINE MD May 05, 2017 15:55
[2017-05-05 16:00] VITALS: BP 106/68; PULSE 78; RESP 20; TEMP 98
== END 2017-05-05 16:01 | disposition home or self-care (01) ==
LOC: E/R 14:55
DX: R51 Headache (principal); R39.89 Other symptoms and signs involving the genitourinary system
CPT/HCPCS: 99284

== ENCOUNTER 2018-11-21 02:09 | Emergency (ER) | payer SELFPAY ==
[~2018-11-21] VITALS: Wt 160.2 kg
[~2018-11-21 02:09] MED LIST changes: +HYDR-3980 PO; -HYDR-902 PO; -IBUP800T25 PO
[2018-11-21 02:12] VITALS: BP 111/61; PULSE 90; RESP 18
== END 2018-11-21 05:53 | disposition left against medical advice (07) ==
LOC: FTE 02:09
DX: Z53.21 Procedure and treatment not carried out due to patient leaving prior to being seen by health care provider (principal)